=== PATIENT | female | born 2000 | race Caucasian/White ===

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

== ENCOUNTER 2022-04-06 06:30 | Day surgery (SDC) | payer OTHER ==
[2022-04-06] MEDS ORDERED: KEFZOL 1 GM/50 ML PREMIX** 1 GM/50 ML IVPB IV SCH (07:15)
[2022-04-06] MEDS ORDERED: Lactated Ringers 1,000 ML IV SCH (07:30)
[2022-04-06] MEDS ORDERED: Lactated Ringers 1,000 ML IV ONE (07:33)
[2022-04-06] MEDS ORDERED: KEFZOL 1 GM/50 ML PREMIX** 1 GM/50 ML IVPB IV ONE (07:34)
[2022-04-06] MEDS ORDERED: DIPRIVAN 200 MG/20 ML IV ONE ×2 (07:54→07:57)
[2022-04-06] MEDS ORDERED: Xylocaine-Mpf 2% 5 Ml Vial ONE ×2 (07:54→07:57)
[2022-04-06] MEDS ORDERED: SUBLIMAZE 100 MCG/2 ML ONE (07:57)
[2022-04-06] MEDS ORDERED: Zofran 4 MG/2 ML VIAL ONE (07:57)
[2022-04-06] MEDS ORDERED: Decadron 4 MG INJ ONE (07:57)
[2022-04-06] MEDS ORDERED: Versed 2 MG/2 ML Injection IV PRN (08:00)
[2022-04-06] MEDS ORDERED: Versed 2 MG/2 ML Injection ONE (08:12)
[2022-04-06 10:03] VITALS: BP 110/63; PULSE 61; O2SAT 95
--- NOTE | 2022-04-07 10:05 | OP ---
SURGERY DATE/TIME: 04/06/2022 0831 PREOPERATIVE DIAGNOSIS: Post-coital bleeding. POSTOPERATIVE DIAGNOSIS: Post-coital bleeding. PROCEDURE: Hysteroscopy D&C. SURGEON: Greg Marcelino D.O. CARTOGRAPHY SUPERVISOR: Violette Neff, assembler surgical garment. ANESTHESIA: General. ESTIMATED BLOOD LOSS: Minimal. COMPLICATIONS: None. INDICATIONS: The risks, benefits, indications and alternatives of the procedure were reviewed with the patient prior to procedure. The patient understood the risk of infection, bleeding, bowel injury, bladder injury, ureteral injury, uterine perforation, pelvic infection and thromboembolic disorder associated with the surgery and desires to have this surgery as a possible means to alleviate her current medical condition. DESCRIPTION OF PROCEDURE AND FINDINGS: At this point the patient is taken to the operating room, given general sedation, placed in dorsal lithotomy position, prepped and draped in the usual sterile fashion. A weighted speculum is then placed in the patient's vagina and the anterior lip of the cervix is grasped with a single tooth tenaculum. Endocervical dilators were advanced through the endocervical canal as a means to dilate the cervix. At this point, a 5 mm hysteroscope was then placed in through the endocervical canal where visualization of the endometrial cavity appeared to be within normal limits with no gross abnormalities that were visualized. From this point, the hysteroscope was then removed and the curette was then placed into the fundus of the uterus and curettage performed in all quadrants of the uterus retrieving a mild to moderate amount of tissue. From this point after curettage hemostasis was obtained. All instruments were then removed from the patient's vaginal region. The patient was then taken out of dorsal lithotomy position, was taken out of anesthesia and was then taken to the recovery room in stable condition. All instruments and laps were accounted for x2.
== END 2022-04-06 10:20 | disposition home or self-care (01) ==
LOC: SDC 06:30
PROVIDERS: ATTEND Obstetrics & Gynecology
DX: N93.0 Postcoital and contact bleeding (principal)
CPT/HCPCS: 81025; J0690; J1100; J2250; J2405; J2704; J3010

== ENCOUNTER 2022-08-22 23:33 | Emergency (ER) | payer OTHER ==
[2022-08-22 23:50] VITALS: O2SAT 99
--- NOTE | 2022-08-23 00:19 | ERPHSYRPT ---
- History of Present Illness Time Seen by Provider: 08/23/22 00:18 Source: patient Exam Limitations: no limitations Patient Subjective Stated Complaint: spotting during Triage Nursing Assessment: pt ambulated into ER without diff. Pt alert and oriented x4, spouse at bedside. Pt is currently 6w 3d . Pt c/o light spotting off and on for the last week and a half. Pt and her spouse had sex around 8:30 pm and she began spotting again but a little more than she has been. Pt denies any pain. Physician History: 22yo F presents to the ER w/ vaginal bleeding. Pt is a at 6w 3d by LMP. Pt c/o light spotting off and on for the last week and a half. Pt and her spouse had sex around 8:30 pm and she began spotting again but a little more than she has been. Pt denies any abd pain, vaginal d/c, fevers. No hx of previous . Timing/Duration: week(s) (1.5) Activites at Onset: sexual activity Pain Radiation: none Severity of Pain-Max: none Severity of Pain-Current: none Prior abdominal problems: none Sexual intercourse history: single partner Associated Symptoms: denies symptoms Allergies/Adverse Reactions: vancomycin Allergy (Severe, Verified 08/22/22 23:58) Itching Home Medications: Pnv No.95/Ferrous Fum/Folic AC [ Vitamins Tablet] 1 tab PO DAILY 08/22/22 [History] Hx Tetanus, Diphtheria Vaccination/Date Given: Yes Hx Influenza Vaccination/Date Given: No Hx Pneumococcal Vaccination/Date Given: No Travel Risk - International Travel Have you traveled outside of the country in past 3 weeks: No - Coronavirus Screening Are you exhibiting any of the following symptoms?: No Close contact with a COVID-19 positive Pt in past 14-21 Days: No - Vaccine Status Have you recieved a Covid-19 vaccination: No - Review of Systems Constitutional: No Symptoms Eyes: No Symptoms Cardiac: No Symptoms Abdominal/Gastrointestinal: No Symptoms Genitourinary Symptoms: , Vaginal Bleeding, No Dysuria, No Frequency, No Hematuria, No Vaginal Discharge, No Vaginal Itching - Past Medical History Pertinent Past Medical History: Yes Neurological History: No Pertinent History ENT History: No Pertinent History, Other Cardiac History: No Pertinent History, Other Respiratory History: Asthma Endocrine Medical History: No Pertinent History Musculoskeletal History: Fractures, Other GI Medical History: Gallbladder Disease History: No Pertinent History Psycho-Social History: Depression, Anxiety Female Reproductive Disorders: No Pertinent History Other Medical History: Asthma as child (no longer has issues). panic attacks - Past Surgical History Past Surgical History: Yes Neuro Surgical History: No Pertinent History Cardiac: No Pertinent History Respiratory: No Pertinent History Gastrointestinal: Cholecystectomy Genitourinary: No Pertinent History Musculoskeletal: No Pertinent History Female Surgical History: No Pertinent History Other Surgical History: 2019 Cellulitis of face required surgery. 2017 Lap michel. tubes in both ears as a baby - Social History Smoking Status: Never smoker How long have you smoked: 3 yrs Exposure to second hand smoke: Yes Drug Use: none Patient Lives Alone: No - Female History Hx Last Menstrual Period: 07/09/22 Hx Now: Yes Gestational Age: 6 wks 3 d - Nursing Vital Signs Nursing Vital Signs: Initial Vital Signs Temperature 98.9 F 08/22/22 23:49 Pulse Rate 86 08/22/22 23:49 Respiratory Rate 16 08/22/22 23:49 Blood Pressure 146/86 08/22/22 23:49 O2 Sat by Pulse Oximetry 99 08/22/22 23:49 Pain Scale Pain Intensity 0 - Physical Exam General Appearance: no apparent distress Eye Exam: eyes nml inspection Ears, Nose, Throat Exam: normal ENT inspection Respiratory Exam: airway intact, No respiratory distress Cardiovascular Exam: capillary refill <2 sec Gastrointestinal/Abdomen Exam: soft, normal bowel sounds, No tenderness, No distention Neurologic Exam: alert, oriented x 3, cooperative Skin Exam: normal color, warm, dry SpO2 Interpretation: normal SpO2: 99 O2 Delivery: Room Air - Course Nursing assessment & vital signs reviewed: Yes Ordered Tests: Active Orders 24 hr Category Date Time Status CBC Stat Lab 08/23/22 00:37 Completed HCG, Quantitative (Inhouse) Stat Lab 08/23/22 00:37 Completed UA W/RFX UR CULTURE Stat Lab 08/22/22 23:51 Completed Lab/Rad Data: Laboratory Result Diagrams 08/23/22 00:37 Laboratory Results 08/23/22 08/23/22 08/22/22 Range/Units 00:37 00:37 23:51 WBC 8.5 (4.0-10.5) x10^3/uL RBC 3.86 L (4.1-5.4) x10^6/uL Hgb 11.9 L (12.0-16.0) g/dL Hct 35.6 (35-47) % MCV 92.2 (78-100) fL MCH 30.8 (26-32) pg MCHC 33.4 (32-36) g/dL RDW 11.7 (11.5-14.0) % Plt Count 273 (150-450) x10^3/uL MPV 9.2 (7.5-11.0) fL Beta HCG, Quant 41781 mIU/ml Urine Color Yellow (Yellow) Urine Appearance Cloudy A (Clear) Urine pH 6.5 (4.6-8.0) Ur Specific [place] 1.020 (1.005-1.030) Urine Protein Negative (Negative) Urine Glucose (UA) Negative (Negative) mg/dL Urine Ketones Negative (Negative) Urine Blood Negative (Negative) Urine Nitrite Negative (Negative) Urine Bilirubin Negative (Negative) Urine Urobilinogen 0.2 (0.2) mg/dL Ur Leukocyte Esterase Negative (Negative) U Hyaline Cast (Auto) NONE SEEN (0-2) /LPF Urine Microscopic RBC 0-2 (0-5) /HPF Urine Microscopic WBC 0-2 (0-5) /HPF Ur Epithelial Cells None Seen (None Seen) /HPF Urine Bacteria None Seen (None Seen) /HPF Urine Culture Reflexed NO (NO) - Progress Progress: unchanged Air Movement: good Progress Note: 08/23/22 01:00 Hb 11.9, UA neg. Quant HCG pending. 08/23/22 01:42 Quant hCG was 42,000 within normal limits for estimated gestational age of 6 weeks and 3 days. I encourage patient to call Dr. Landin this week to schedule an appointment and to get her transvaginal ultrasound for dating scheduled. Blood Culture(s) Obtained: No Antibiotics given: No Counseled pt/family regarding: lab results, diagnosis, need for follow-up Medical Desision Making - Diagnostic Testing Diagnostic test were ordered, analyzed, and reviewed by me: Yes Radiological Interpretation: Interpreted by me - Risk of complications Low Risk: Low risk of morbidity from additional dx testing or treatment - Departure Departure Disposition: Home Clinical Impression: Vaginal bleeding in patient after first trimester Condition: Good Critical Care Time: No Referrals: ENEIDA LANDIN MD [Primary Care Provider] - Follow up/PCP as directed Instructions: Bleeding in Early (DC)
[2022-08-23 00:28] LABS: Appearance Cloudy (Clear); Bacteria None Seen /HPF (None Seen); Bilirubin Negative (Negative); Blood Negative (Negative); Epithelial Cells None Seen /HPF (None Seen); Glucose, Urine Negative (Negative); Hyaline Casts NONE SEEN /LPF (0-2); Ketones Negative (Negative); Leukocyte Esterase Negative (Negative); Nitrite Negative (Negative); Ph 6.5 (4.6-8.0); Protein,Urine Dip Negative (Negative); RBC 0-2 /HPF (0-5); Urobilinogen 0.2 mg/dL (0.2); WBC 0-2 /HPF (0-5)
[2022-08-23 00:29] LABS: ADD URINE CULTURE? NO (NO)
[2022-08-23 00:39] LABS: Hematocrit 35.6 % (35-47); Hemoglobin 11.9 g/dL (12.0-16.0); Mean Cell Volume 92.2 fL (78-100); Mean Corpuscular Hemoglobin 30.8 pg (26-32); Mean Corpuscular Hgb Concent. 33.4 g/dL (32-36); Mean Platelet Volume 9.2 fL (7.5-11.0); Platelet Count 273 x10^3/uL (150-450); Red Blood Count 3.86 x10^6/uL (4.1-5.4); Red Cell Distribution Width 11.7 % (11.5-14.0); White Blood Count 8.5 x10^3/uL (4.0-10.5)
[2022-08-23 01:36] VITALS: BP 132/85; PULSE 83
== END 2022-08-23 01:54 | disposition home or self-care (01) ==
LOC: ED 23:33
DX: O20.9 Hemorrhage in early pregnancy, unspecified (principal); Z3A.01 Less than 8 weeks gestation of pregnancy; Z28.310 Unvaccinated for COVID-19
CPT/HCPCS: 36415; 81001; 84702; 85027; 99281

== ENCOUNTER 2023-02-20 12:01 | Observation (INO) | payer OTHER ==
[2023-02-20] MEDS ORDERED: BRETHINE 1 MG/ML SQ ONE (12:58)
[2023-02-20] MEDS ORDERED: BRETHINE 1 MG/ML ONE (13:23)
[2023-02-20 13:26] LABS: Appearance Cloudy (Clear); Bacteria None Seen /HPF (None Seen); Bilirubin Negative (Negative); Blood Negative (Negative); Epithelial Cells Few /HPF (None Seen); Glucose, Urine Negative (Negative); Hyaline Casts NONE SEEN /LPF (0-2); Ketones 15 (Negative); Leukocyte Esterase Small (Negative); Nitrite Negative (Negative); Ph 7.5 (4.6-8.0); Protein,Urine Dip Negative (Negative); RBC 0-2 /HPF (0-5); Specific Gravity 1.015 (1.005-1.030); WBC 21-50 /HPF (0-5)
[2023-02-20] MEDS: Lactated Ringers 1,000 ML IV SCH ×2 (13:33→14:41)
[2023-02-20 13:35] LABS: Amphetamine,Urine NEGATIVE (NEGATIVE); Barbiturate,Urine NEGATIVE (NEGATIVE); Benzodiazepine,Urine NEGATIVE (NEGATIVE); Cocaine,Urine NEGATIVE (NEGATIVE); Methadone,Urine NEGATIVE (NEGATIVE); Opiate,Urine NEGATIVE (NEGATIVE); PCP,Urine NEGATIVE (NEGATIVE); THC,Urine NEGATIVE (NEGATIVE)
[2023-02-20 13:36] LABS: ADD URINE CULTURE? YES (NO)
[2023-02-20 13:49] LABS: INFLUENZA A NEGATIVE (NEGATIVE); INFLUENZA B NEGATIVE (NEGATIVE); RESPIRATORY SYNCTIAL VIRUS NEGATIVE (NEGATIVE); SARS-CoV-2 Xpert Express NEGATIVE (NEGATIVE)
[2023-02-20] MEDS ORDERED: Lactated Ringers 1,000 ML IV SCH (15:00)
[2023-02-20] MEDS: PROCARDIA 10 MG PO SCH ×2 (15:36→21:19)
[2023-02-20] MEDS: Celestone Soluspan 6MG/ML IM SCH (16:40)
[2023-02-20 20:01] VITALS: RESP 18
[2023-02-21] MEDS: PROCARDIA 10 MG PO SCH ×2 (03:04→09:07)
[2023-02-21 06:20] VITALS: O2SAT 96
[2023-02-21 10:13] VITALS: BP 123/65; PULSE 100; TEMP 97.9
[2023-02-21] MEDS: Celestone Soluspan 6MG/ML IM SCH (11:59)
== END 2023-02-21 12:25 | disposition home or self-care (01) ==
LOC: OB 12:01
PROVIDERS: ADMIT Obstetrics & Gynecology; ATTEND Family Medicine
DX: O24.419 Gestational diabetes mellitus in pregnancy, unspecified control (principal); Z3A.32 32 weeks gestation of pregnancy
CPT/HCPCS: 0241U; 80307; 81001; 82947; 84112; 87086; J0702; A9270-GY

== ENCOUNTER 2023-04-06 12:36 | Inpatient (IN) | payer OTHER ==
[2023-04-06] MEDS ORDERED: STADOL 2 MG IV PRN (13:33)
[2023-04-06] MEDS ORDERED: LANSINOH 40 GM TOP PRN (13:33)
[2023-04-06] MEDS ORDERED: TUCKS TP PRN (13:33)
[2023-04-06] MEDS ORDERED: Zofran 4 MG/2 ML VIAL IV PRN (13:33)
[2023-04-06] MEDS ORDERED: NORCO 5/325 MG PO PRN (13:33)
[2023-04-06] MEDS ORDERED: XYLOCAINE 1% HCL 20 ML MDV IJ PRN (13:33)
[2023-04-06] MEDS ORDERED: PITOCIN 30 UNITS/ LR 500 ML 30 UNITS/500 ML PLAST..BAG IV SCH (14:00)
[2023-04-06] MEDS ORDERED: Lactated Ringers 1,000 ML IV SCH (14:00)
[2023-04-06 14:07] LABS: Absolute Neutrophil Ct (ANC) 7.44 x10^3/uL (1.4-6.9); BASOPHIL % 0.5 % (0.0-0.4); Basophil (Absolute #) 0.05 x10^3/uL (0-0.4); Eosinophil % 0.4 % (0.00-5.0); Eosinophil (Absolute #) 0.04 x10^3/uL (0-0.5); Hematocrit 39.7 % (35-47); Hemoglobin 13.3 g/dL (12.0-16.0); IMMATURE GRAN # 0.09 x10^3u/L (0.00-0.03); IMMATURE GRAN % 0.9 % (0.00-0.4); Lymphocyte (Absolute #) 2.01 x10^3/uL (1.0-4.6); Lymphocytes % 19.5 % (24.0-44.0); Mean Cell Volume 92.1 fL (78-100); Mean Corpuscular Hemoglobin 30.9 pg (26-32); Mean Corpuscular Hgb Concent. 33.5 g/dL (32-36); Mean Platelet Volume 9.7 fL (7.5-11.0); Monocyte (Absolute #) 0.66 x10^3/uL (0.0-1.3); Monocytes % 6.4 % (0.0-12.0); Neutrophil % 72.3 % (36.0-66.0); Platelet Count 272 x10^3/uL (150-450); Red Blood Count 4.31 x10^6/uL (4.1-5.4); Red Cell Distribution Width 12.2 % (11.5-14.0); White Blood Count 10.3 x10^3/uL (4.0-10.5)
[2023-04-06 14:32] LABS: Amphetamine,Urine NEGATIVE (NEGATIVE); Barbiturate,Urine NEGATIVE (NEGATIVE); Benzodiazepine,Urine NEGATIVE (NEGATIVE); Cocaine,Urine NEGATIVE (NEGATIVE); Methadone,Urine NEGATIVE (NEGATIVE); Opiate,Urine NEGATIVE (NEGATIVE); PCP,Urine NEGATIVE (NEGATIVE); THC,Urine NEGATIVE (NEGATIVE)
[2023-04-06 14:57] LABS: ABO TYPING A; Antibody Screen NEGATIVE (NEGATIVE); RH TYPING POSITIVE
[2023-04-06] MEDS: MOTRIN 400 MG PO PRN (17:00)
[2023-04-06] MEDS ORDERED: Dermoplast Spray TP PRN (18:00)
[2023-04-06] MEDS ORDERED: Sensorcaine 0.25% 10 ML ONE (21:32)
[2023-04-06] MEDS ORDERED: SUBLIMAZE 100 MCG/2 ML ONE (21:59)
[2023-04-06] MEDS: TYLENOL EXTRA STRENGTH 500 MG PO PRN (22:19)
[2023-04-07] MEDS: MOTRIN 400 MG PO PRN ×2 (04:50→17:51)
[2023-04-07 05:09] LABS: Absolute Neutrophil Ct (ANC) 8.24 x10^3/uL (1.4-6.9); BASOPHIL % 0.2 % (0.0-0.4); Basophil (Absolute #) 0.03 x10^3/uL (0-0.4); Eosinophil % 0.5 % (0.00-5.0); Eosinophil (Absolute #) 0.06 x10^3/uL (0-0.5); Hemoglobin 12.1 g/dL (12.0-16.0); IMMATURE GRAN # 0.06 x10^3u/L (0.00-0.03); IMMATURE GRAN % 0.5 % (0.00-0.4); Lymphocyte (Absolute #) 2.99 x10^3/uL (1.0-4.6); Lymphocytes % 24.4 % (24.0-44.0); Mean Cell Volume 92.8 fL (78-100); Mean Corpuscular Hemoglobin 31.2 pg (26-32); Mean Corpuscular Hgb Concent. 33.6 g/dL (32-36); Mean Platelet Volume 10.1 fL (7.5-11.0); Monocyte (Absolute #) 0.89 x10^3/uL (0.0-1.3); Monocytes % 7.3 % (0.0-12.0); Neutrophil % 67.1 % (36.0-66.0); Platelet Count 300 x10^3/uL (150-450); Red Blood Count 3.88 x10^6/uL (4.1-5.4); Red Cell Distribution Width 12.6 % (11.5-14.0); White Blood Count 12.3 x10^3/uL (4.0-10.5)
[2023-04-07] MEDS: FERREX 150 PO SCH (09:55)
[2023-04-07] MEDS: Docusate Sodium 100 MG PO SCH ×2 (09:55→21:31)
[2023-04-07] MEDS: TYLENOL EXTRA STRENGTH 500 MG PO PRN (09:57)
[2023-04-07] MEDS ORDERED: Adacel Vial IM ONE (15:00)
[2023-04-08] MEDS: TYLENOL EXTRA STRENGTH 500 MG PO PRN (02:17)
--- NOTE | 2023-04-08 08:59 | PCM.DS ---
Discharge Summary Date of Admission: 04/06/23 14:00 Admitting Physician: ENEIDA LANDIN Consults: Consults on Case 04/06/23 18:48 Navigation ONCE Primary Care Provider: ENEIDA LANDIN Allergies Allergies vancomycin Allergy (Severe, Verified 04/06/23 14:11) Itching Hospital Summary - Hospital Course Hospital Course: patient arrived in spontaneous labor at 38wks, had an uncomplicated vaginal delivery, doing great , . no pain issues, mild lochia, tolerating po intake - Vitals & Intake/Output Vital Signs: Vital Signs Temperature 98.2 F 04/08/23 02:00 Pulse Rate 80 04/08/23 02:00 Respiratory Rate 20 04/08/23 02:00 Blood Pressure 121/77 04/08/23 02:00 O2 Sat by Pulse Oximetry 99 04/08/23 02:00 Intake & Output: Intake & Output 04/05/23 04/06/23 04/07/23 04/08/23 11:59 11:59 11:59 11:59 Intake Total 660 1000 Output Total 150 Balance 510 1000 Weight 63.049 kg - Lab Result Diagrams: 04/07/23 04:09 - Procedures and Test Procedures and Tests throughout Hospitalization: Therapy Orders & Screens 04/06/23 15:23 Smoking Cessation Education ONCE Comment: Diagnosis: IUP Smoking Status: Current every day smoker How long have you smoked: 5 years Have you smoked in the past 12 months: Yes: vape Approximately how many cigarettes per day: occasional Do you dip or chew tobacco: No If,Former Smoker,when did you quit: 5 yrs Discharge Exam General Appearance: no apparent distress Neurologic Exam: alert, oriented x 3 Respiratory Exam: normal breath sounds, lungs clear, No respiratory distress Cardiovascular Exam: regular rate/rhythm, normal heart sounds Gastrointestinal/Abdomen Exam: soft, No tenderness, No mass Extremity Exam: normal inspection, normal range of motion Skin Exam: normal color, warm, dry Final Diagnosis/Problem List - Final Discharge Diagnosis/Problem (1) Normal vaginal delivery Current Visit: Yes Status: Acute Code(s): O80 - ENCOUNTER FOR FULL-TERM UNCOMPLICATED DELIVERY (2) (infant) Current Visit: Yes Status: Acute Code(s): Z78.9 - OTHER SPECIFIED HEALTH STATUS - Discharge Disposition: Home, Self-Care Condition: Fair Prescriptions: Continue Pnv No.95/Ferrous Fum/Folic AC [ Vitamins Tablet] 1 tab PO DAILY Ferrous Sulfate [Iron] 325 mg PO DAILY Follow up with: ENEIDA LANDIN MD [Primary Care Provider] - 6 weeks
[2023-04-08] MEDS: FERREX 150 PO SCH (09:32)
[2023-04-08] MEDS: Docusate Sodium 100 MG PO SCH (09:32)
[2023-04-08 11:56] VITALS: BP 104/53; PULSE 68; RESP 18; TEMP 98.1; O2SAT 98
== END 2023-04-08 12:55 | disposition home or self-care (01) | DRG 807 ==
LOC: OB 12:36 → OBSVTOIN 14:00 → OB 14:00 → UNDODISIN 04-07 04:40
PROVIDERS: ADMIT Family Medicine; ATTEND Family Medicine
PROC: 10E0XZZ Delivery of Products of Conception, External Approach (ICD-10-PCS; principal; 2023-04-06)
DX: O80 Encounter for full-term uncomplicated delivery (principal); Z37.0 Single live birth; Z3A.38 38 weeks gestation of pregnancy; Z20.828 Contact with and (suspected) exposure to other viral communicable diseases
CPT/HCPCS: 36415; 80307; 82947; 85025; 86850; 86900; 86901; 90471; 90715; G0379; J3010; A9270-GY